=== PATIENT | female | born 1995 | race Caucasian/White ===

== ENCOUNTER → 2020-07-11 | Outpatient (CLI) | payer BC | END | disposition home or self-care (01) | LOC: LAB 11:53 | PROVIDERS: ATTEND Internal Medicine | DX: J02.9 Acute pharyngitis, unspecified (principal) ==

== ENCOUNTER 2022-04-13 04:26 | Emergency (ER) | payer BC ==
[~2022-04-13] VITALS: Wt 77.1 kg
[2022-04-13 04:53] LABS: BASO % 0.2 % (0.0-1.0); EOS % 0.1 % (1.0-4.0); HEMATOCRIT 38.8 % (37.0-47.0); LYMPH # 1.3 10*3/uL (1.3-4.4); LYMPH % 7.7 % (27.0-41.0); MEAN CELL VOLUME 90.2 fl (81.0-99.0); MEAN CORPUSCULAR HGB 29.8 pg (27.0-31.0); MEAN PLATELET VOLUME 9.7 fl (9.6-12.3); MONO # 0.8 10*3/uL (0.1-1.0); MONO % 4.9 % (3.0-9.0); NEUT # 14.5 10*3/uL (2.3-7.9); NEUT % 86.7 % (47.0-73.0); PLATELET COUNT AUTOMATED 344 10*3/uL (130-400); RED CELL DISTRI WIDTH 11.9 % (0-14.5); WHITE BLOOD COUNT 16.7 10*3/uL (4.8-10.8)
[2022-04-13 05:11] LABS: ALKALINE PHOSPHATASE 59 U/L (46-116); BUN 13 mg/dl (9-23); CHLORIDE 105 mmol/L (98-107); LIPASE 30 U/L (12-53); POTASSIUM 3.3 mmol/L (3.4-5.1); SGPT/ALT 24 U/L (10-49); TOTAL PROTEIN 7.9 gm/dL (6.0-8.0)
[2022-04-13 05:14] LABS: B-hCG (QUALITATIVE) NEGATIVE (NEGATIVE)
[2022-04-13] MEDS ORDERED: Ondansetron4 MG PO (05:49)
[2022-04-13] MEDS ORDERED: CEFDINIR300 MG PO (05:49)
[2022-04-13] MEDS ORDERED: FLOMAX0.4 MG PO (05:49)
[2022-04-13] MEDS ORDERED: IBU800 M2 PO (05:49)
[2022-04-13] MEDS ORDERED: Percocet 325 MG1 TAB PO (05:50)
[2022-04-13 06:19] LABS: BILIRUBIN Negative (Negative); BLOOD 3+ (Negative); CLARITY Clear (Clear); COLOR Yellow (Yellow); GLUCOSE Negative (Negative); KETONE Negative (Negative); LEUKO ESTERASE Negative (Negative); NITRITE Negative (Negative); PH 6.5 (4.5-8.0); SPECIFIC GRAVITY 1.015 (1.001-1.030)
[2022-04-13 06:41] LABS: RBC 41-50 rbc/hpf (0-2)
[2022-04-13 06:42] LABS: BACTERIA 1+
== END 2022-04-13 06:17 | disposition home or self-care (01) ==
LOC: ED 04:26
PROVIDERS: Emergency Medicine
DX: N13.2 Hydronephrosis with renal and ureteral calculous obstruction (principal)

== ENCOUNTER → 2022-06-16 | Outpatient (CLI) | payer BC ==
[~2022-06-16] MED LIST: CEFDINIR300 MG PO; FLOMAX0.4 MG PO; IBU800 M2 PO; Ondansetron4 MG PO; Percocet 325 MG1 TAB PO
== END | disposition home or self-care (01) ==
LOC: LAB 13:59
PROVIDERS: ATTEND Internal Medicine
DX: J02.9 Acute pharyngitis, unspecified (principal)